=== PATIENT | female | born 1995 | race African-American/Black ===

== ENCOUNTER 2021-03-17 12:07 | Emergency (ER) | payer OTHER ==
[2021-03-17 12:14] VITALS: BP 140/97; PULSE 87; RESP 18; TEMP 98.4
--- NOTE | 2021-03-17 13:25 | ED ---
General Adult HPI - General Chief complaint: Upper Respiratory Infection Stated complaint: Covid Swab/Fever Time Seen by Provider: 03/17/21 12:14 Source: patient, RN notes reviewed Mode of arrival: ambulatory Limitations: no limitations - History of Present Illness Initial comments: 25-year-old female presents to the emergency room for a chief complaint of Adams virus test. Patient has been living with someone who tested positive yesterday. Source patient has been symptomatic for about a week now. Patient states yesterday she started to lose her sense of taste and smell. Denies any other symptoms.Patient has no other complaints at this time including shortness of breath, chest pain, abdominal pain, nausea or vomiting, headache, or visual changes. - Related Data Allergies Allergy/AdvReac Type Severity Reaction Status Date / Time No Known Allergies Allergy Verified 03/17/21 12:10 Review of Systems ROS Statement: Those systems with pertinent positive or pertinent negative responses have been documented in the HPI. ROS Other: All systems not noted in ROS Statement are negative. Past Medical History Past Medical History: No Reported History History of Any Multi-Drug Resistant Organisms: None Reported Additional Past Surgical History / Comment(s): nasal polyp Past Psychological History: Anxiety Smoking Status: Never smoker Past Alcohol Use History: Rare Past Drug Use History: Marijuana General Exam Limitations: no limitations General appearance: alert, in no apparent distress Head exam: Present: atraumatic Eye exam: Present: normal appearance, PERRL, EOMI ENT exam: Present: normal exam, mucous membranes moist Neck exam: Present: normal inspection, full ROM. Absent: tenderness Respiratory exam: Present: normal lung sounds bilaterally. Absent: respiratory distress, wheezes Cardiovascular Exam: Present: regular rate, normal rhythm, normal heart sounds GI/Abdominal exam: Present: soft, normal bowel sounds. Absent: distended, tenderness Course Vital Signs 03/17/21 12:11 Temperature 98.4 F Pulse Rate 87 Respiratory 18 Rate Blood Pressure 140/97 O2 Sat by Pulse 97 Oximetry Medical Decision Making - Medical Decision Making Vitals are stable, Adams virus test is negative. Given patient was exposed and has not had any vaccinations she was offered antibody infusion for postexposure prophylaxis. At this time patient declines. I did recommend she quarantine given exposure. She will return here for any worsening symptoms. - Lab Data Lab Results 03/17/21 Range/Units 12:24 Coronavirus (PCR) Not Detected (Not Detectd) Disposition Clinical Impression: Lab test negative for COVID-19 virus Disposition: HOME SELF-CARE Condition: Good Instructions (If sedation given, give patient instructions): Coronavirus Disease 2019 (COVID-19) Additional Instructions: Please follow up with your doctor in 1-2 days. Return to the ER for any worsening symptoms. Is patient prescribed a controlled substance at d/c from ED?: No Referrals: Edilberto Manley MD [REFERRING] - 1-2 days Time of Disposition: 13:36
== END 2021-03-17 13:45 | disposition home or self-care (01) ==
LOC: EC 12:07
DX: Z11.52 Encounter for screening for COVID-19 (principal); Z20.822 Contact with and (suspected) exposure to COVID-19; F12.90 Cannabis use, unspecified, uncomplicated
CPT/HCPCS: 87635; 99282

== ENCOUNTER 2021-03-28 12:16 | Emergency (ER) | payer OTHER ==
[2021-03-28 12:57] VITALS: BP 138/67; PULSE 89; RESP 18; TEMP 98
--- NOTE | 2021-03-28 13:13 | ED ---
URI HPI - General Chief Complaint: Upper Respiratory Infection Stated Complaint: revisit - sinus infection Time Seen by Provider: 03/28/21 12:58 Source: patient, RN notes reviewed Mode of arrival: ambulatory Limitations: no limitations - History of Present Illness Initial Comments: 25-year-old female presented to the emergency Department with chief complaint of cough and cold symptoms. She states that she was recently tested for COVID-19 Was negative. Patient has nasal congestion no productive cough shortness breath chest pain no fevers chills no other complaints stitches recurrent sinus issues. - Related Data Previous Rx's Medication Instructions Recorded Amoxicillin/Potassium Clav 1 tab PO Q12HR #20 tab 03/28/21 [Augmentin 875-125 Tablet] Fluconazole [Diflucan] 150 mg PO ONCE #2 tab 03/28/21 Allergies Allergy/AdvReac Type Severity Reaction Status Date / Time No Known Allergies Allergy Verified 03/28/21 12:56 Review of Systems ROS Statement: Those systems with pertinent positive or pertinent negative responses have been documented in the HPI. ROS Other: All systems not noted in ROS Statement are negative. Past Medical History Past Medical History: No Reported History History of Any Multi-Drug Resistant Organisms: None Reported Additional Past Surgical History / Comment(s): nasal polyp Past Psychological History: Anxiety Smoking Status: Never smoker Past Alcohol Use History: Rare Past Drug Use History: Marijuana General Exam Limitations: no limitations General appearance: alert, in no apparent distress Head exam: Present: atraumatic, normocephalic, normal inspection Eye exam: Present: normal appearance, PERRL, EOMI. Absent: scleral icterus, conjunctival injection, periorbital swelling ENT exam: Present: normal exam, normal oropharynx, mucous membranes moist, TM's normal bilaterally Neck exam: Present: normal inspection, full ROM. Absent: tenderness, meningismus, lymphadenopathy Respiratory exam: Present: normal lung sounds bilaterally. Absent: respiratory distress, wheezes, rales, rhonchi, stridor Cardiovascular Exam: Present: regular rate, normal rhythm, normal heart sounds. Absent: systolic murmur, diastolic murmur, rubs, gallop, clicks Course Vital Signs 03/28/21 12:55 Temperature 98.0 F Pulse Rate 89 Respiratory 18 Rate Blood Pressure 138/67 O2 Sat by Pulse 97 Oximetry Medical Decision Making - Medical Decision Making Patient was discharged in stable condition return parameters were discussed. Disposition Clinical Impression: Acute upper respiratory infection Disposition: HOME SELF-CARE Condition: Stable Instructions (If sedation given, give patient instructions): Upper Respiratory Infection (ED) Additional Instructions: Please return to the Emergency Department if symptoms worsen or any other concerns. Prescriptions: Amoxicillin/Potassium Clav [Augmentin 875-125 Tablet] 1 tab PO Q12HR #20 tab Fluconazole [Diflucan] 150 mg PO ONCE #2 tab Is patient prescribed a controlled substance at d/c from ED?: No Referrals: None,Stated [Primary Care Provider] - 1-2 days Time of Disposition: 13:12
== END 2021-03-28 13:58 | disposition home or self-care (01) ==
LOC: EC 12:16
DX: J06.9 Acute upper respiratory infection, unspecified (principal); F41.9 Anxiety disorder, unspecified; F12.90 Cannabis use, unspecified, uncomplicated
CPT/HCPCS: 99283